=== PATIENT | female | born 2000 | race Caucasian/White ===

== ENCOUNTER 2022-05-20 07:00 | Inpatient (IN) | payer MEDICAID ==
[~2022-05-20] VITALS: Wt 84.1 kg
[2022-05-20] VITALS (27 sets, daily range): BP systolic 101–147; BP diastolic 57–104; PULSE 68–116; TEMP 97.6–97.8
[2022-05-20 08:33] LABS: BASO % 0.1 % (0.0-2.0); EOS # 0.1 K/mm3 (0.0-0.7); EOS % 0.5 % (0.0-4.0); GRAN # 6.9 K/mm3 (1.4-6.5); GRAN % 75.9 % (42.2-75.2); HEMATOCRIT 39.7 % (37.0-47.0); HEMOGLOBIN 13.7 g/dl (12.5-16.0); LYMPH # 1.6 K/mm3 (1.2-3.4); MEAN CELL VOLUME 95 fl (80.0-100.0); MEAN CORPUSCULAR HEMOGLOBIN 33 pg (27-31); MEAN CORPUSCULAR HGB CONC 35 g/dl (33.0-37.0); MEAN PLATELET VOLUME 12.3 fl (7.4-10.4); MONO # 0.5 K/mm3 (0.1-0.6); MONO % 5.8 % (1.7-9.3); PLATELET COUNT 119 K/mm3 (130-400); RED BLOOD COUNT 4.18 M/mm3 (4.10-5.30); REDCELL DISTRIBUTION WIDTH-CV 12.8 % (11.5-14.5)
--- NOTE | 2022-05-20 09:45 | NUR ---
0963 PT SITTING UP FOR EPIDURAL 0938 TEST DOSE GIVEN. EPIDURAL DONE BY BUSINESS PLANNING MANAGER STUDENT SONYA. PT TOLERATED WELL.
--- NOTE | 2022-05-20 09:45 | NUR ---
0927 PT SITTING UP FOR EPIDURAL. 0938 TEST DOSE GIVEN. PT TOLERATES WELL.
[2022-05-20] MEDS ORDERED: PREDNISONE 5MG5 MG PO (09:48)
--- NOTE | 2022-05-20 15:40 | NUR ---
pt ambulatory up to bathroom. clean gown given. pericare done. clean pad placed. pt tolerates well. pt wheelchaired to nursery for infant bath.
[2022-05-21 07:50] VITALS: BP 111/87; PULSE 84; TEMP 97.8
[2022-05-21] MEDS ORDERED: IBU600 MG PO (08:32)
[2022-05-21 12:00] VITALS: BP 112/64; PULSE 91; TEMP 99.4
[2022-05-21 17:42] VITALS: BP 126/74; PULSE 93; TEMP 99.1
[2022-05-21 20:00] VITALS: BP 115/71; PULSE 81; TEMP 98.2
[2022-05-22 08:29] VITALS: BP 108/71; PULSE 98; TEMP 97.8
[2022-06-10] MEDS ORDERED: CEPHALEXIN500 M1 PO (00:12)
== END 2022-05-22 13:15 | disposition home or self-care (01) | DRG 806 ==
LOC: LDRO 07:00 → LDR 08:48 → OB 15:45
PROVIDERS: ADMIT Obstetrics & Gynecology
PROC: 10E0XZZ Delivery of Products of Conception, External Approach (ICD-10-PCS; principal; 2022-05-20)
PROC: 0KQM0ZZ Repair Perineum Muscle, Open Approach (ICD-10-PCS; 2022-05-20)
PROC: 0UQMXZZ Repair Vulva, External Approach (ICD-10-PCS; 2022-05-20)
DX: O99.344 Other mental disorders complicating childbirth (principal); O99.12 Other diseases of the blood and blood-forming organs and certain disorders involving the immune mechanism complicating childbirth; Z37.0 Single live birth; F41.9 Anxiety disorder, unspecified; Z3A.39 39 weeks gestation of pregnancy; F32.A Depression, unspecified; D69.6 Thrombocytopenia, unspecified; Z14.1 Cystic fibrosis carrier; O70.1 Second degree perineal laceration during delivery; O69.3XX0 Labor and delivery complicated by short cord, not applicable or unspecified
CPT/HCPCS: J2405; J2590; J7120

== ENCOUNTER 2022-06-07 11:05 | Emergency (ER) | payer MEDICAID ==
[~2022-06-07] VITALS: Ht 162.6 cm; Wt 75.0 kg
[~2022-06-07 11:05] MED LIST: IBU600 MG PO; PREDNISONE 5MG5 MG PO
[2022-06-07] MEDS ORDERED: PRENATAL TABLET PO (11:16)
[2022-06-07] MEDS ORDERED: B-12 500 MCG PO (11:17)
[2022-06-07] MEDS ORDERED: VITAMIN D31000 IU PO (11:17)
[2022-06-07] MEDS ORDERED: VITAMIN C500 MG PO (11:17)
[2022-06-07] MEDS ORDERED: [UNRECOGNIZED DRUG - OTHER] (11:18)
[2022-06-07 12:11] LABS: COLLECTION METHOD CLEAN CATCH
[2022-06-07 12:25] LABS: BASO % 0.2 % (0.0-2.0); EOS # 0.1 K/mm3 (0.0-0.7); GRAN # 4.8 K/mm3 (1.4-6.5); GRAN % 80.4 % (42.2-75.2); HEMOGLOBIN 12.7 g/dl (12.5-16.0); LYMPH # 0.7 K/mm3 (1.2-3.4); LYMPH % 11.8 % (20.0-51.0); MEAN CELL VOLUME 95 fl (80.0-100.0); MEAN CORPUSCULAR HEMOGLOBIN 33 pg (27-31); MEAN CORPUSCULAR HGB CONC 35 g/dl (33.0-37.0); MEAN PLATELET VOLUME 10.7 fl (7.4-10.4); MONO # 0.4 K/mm3 (0.1-0.6); MONO % 6.4 % (1.7-9.3); PLATELET COUNT 152 K/mm3 (130-400); RED BLOOD COUNT 3.88 M/mm3 (4.10-5.30)
[2022-06-07 12:31] LABS: HEMATOCRIT 36.8 % (37.0-47.0)
[2022-06-07 12:33] LABS: MUCOUS Present (NOT PRESENT); SQUAMOUS EPITHELIAL None Seen /hpf (0-10); URINE BACTERIA None Seen /hpf (NONE SEEN); URINE RBC >50 /hpf (0-2)
[2022-06-07 12:38] LABS: URINE APPEARANCE Clear (CLEAR/HAZY); URINE COLOR Yellow (YELLOW); URINE GLUCOSE Negative (NEGATIVE); URINE PROTEIN(semi-quant) TRACE (NEGATIVE)
[2022-06-07 12:39] LABS: URINE BLOOD 2+ (NEGATIVE); URINE KETONE 1+ (NEGATIVE); URINE NITRATE Negative (NEGATIVE); URINE UROBILINOGEN 0.2 E.U/dL (0.2-1.0)
[2022-06-07 12:42] LABS: ALBUMIN 3.7 gm/dL (3.5-5.0); BILIRUBIN,TOTAL 0.5 mg/dL (0.2-1.2); CALCIUM 9.4 mg/dL (8.4-10.2); CREATININE, serum 0.7 mg/dL (0.57-1.11); POTASSIUM 3.5 mmol/L (3.5-4.5); TOTAL PROTEIN 6.9 gm/dL (6.2-8.1)
[2022-06-07 13:09] VITALS: BP 101/69; PULSE 100; TEMP 98
[2022-06-10] MEDS ORDERED: CEPHALEXIN500 M1 PO (00:12)
== END 2022-06-07 13:11 | disposition home or self-care (01) ==
LOC: COL.ER 11:05
PROVIDERS: Emergency Medicine
DX: O86.4 Pyrexia of unknown origin following delivery (principal); Z20.822 Contact with and (suspected) exposure to COVID-19
CPT/HCPCS: J7030